=== PATIENT | female | born 1985 ===

== ENCOUNTER 2025-07-03 06:16 | Day surgery (SDC) | payer OTHER, SELFPAY ==
[2025-07-03] VITALS (9 sets, daily range): BP systolic 120–147; BP diastolic 84–96; BMI 30.6
[2025-07-03] MEDS: HEPARIN 5000 UNITS SC (14:13)
[2025-07-03] MEDS: NORMOSOL-R/PLASMALYTE-A 1000 IV (14:13)
[2025-07-03] MEDS: NEURONTIN 300 MG PO (14:14)
[2025-07-03] MEDS: CELEBREX 200 MG PO (14:14)
[2025-07-03] MEDS: TYLENOL 1000 MG PO (14:14)
--- NOTE | 2025-07-03 17:22 | OR.RPT ---
Operative Report
Operative Report
Primary Surgeon: Tyrell Reyez MD
Assisting Surgeon: Erna Krishnamurthy
Pre-op Diagnosis: Abnormal uterine bleeding, enlarged uterus with multiple leiomyoma
Post-op Diagnosis: Same pending final pathology
Procedure Performed: Dilation and curettage with diagnostic hysteroscopy
Anesthesia Type: General, LMA intubation
Specimen / Cultures: Endometrial curettage
Estimated Blood Loss: 10 cc
Complications: None
Operative procedures and findings: This patient was taken to the operating room and placed in supine position general anesthesia was administered LMA intubation was performed she was placed in lithotomy position and arms were on armrests
perpendicular to the patient. She was prepped and perineum and vagina and upper thighs and lower abdomen and draped. Timeout procedure was carried out, and she received prophylactic antibiotic. I used a Delcid retractor to retract both anterior and
posterior sampson of the vagina and identified the cervix in an unusual high location, anterior lip was grasped with single-tooth tenaculum. Next paracervical block with 10 cc 1% lidocaine was injected at the 5 and 7:00 locations. Cervical canal was
gradually dilated, in order to dilate the cervix it appeared that the dilator went toward left abdomen and was sharply angulated, the uterus sounded to 16 cm. I attempted hysteroscopy and hysteroscope was placed but I did not feel that the
hysteroscope actually entered the uterine cavity and I was only at the level of the lower uterine segment. Throughout these portions I did not see any significant abnormalities hysteroscope was removed sharp curettage of the endometrial cavity was
performed and EMC was submitted to pathology. All instruments were removed cervix was hemostatic. I removed all instruments there was no evidence of bleeding. Patient was awakened and returned back to recovery room stable awake and extubated
condition. Counts of labs instruments and needle was correct x 2. I was present and scrubbed for entire procedure as dictated above
Disposition: To PACU stable awake and extubated
== END 2025-07-03 16:50 | disposition home or self-care (01) ==
LOC: SDS 06:16
PROVIDERS: ATTENDING PHYSICIAN Obstetrics & Gynecology Gynecologic Oncology
DX: N93.9 Abnormal uterine and vaginal bleeding, unspecified (principal); D25.9 Leiomyoma of uterus, unspecified; N84.0 Polyp of corpus uteri
CPT/HCPCS: 58558; 88305